=== PATIENT | male | born 1960 | race Caucasian/White ===

== ENCOUNTER → 2017-09-11 | Outpatient (CLI) | payer OTHER ==
[~2017-09-11] MED LIST: ACYC-114 PO; ALPR1TAB6 PO; GLUC-121 PO; LEVO150T5 PO; MULT-658 PO; OXYC1TAB7 PO
== END | disposition home or self-care (01) ==
LOC: PETCFH 08:32
PROVIDERS: ATTEND Urology
DX: C61 Malignant neoplasm of prostate (principal)
CPT/HCPCS: 78306; A9503

== ENCOUNTER 2018-05-10 17:27 | Emergency (ER) | payer OTHER ==
[~2018-05-10] VITALS: Ht 175.3 cm; Wt 95.2 kg
--- NOTE | 2018-05-10 18:28 | NUR ---
BLADDER SCAN DONE [id number] NOTED. SINGER PLACED WITH EASEMENT. IMMEDIATE OVER 500CC DARK BLOOD URINE NOTED AND STILL DRAINING PT STATES THE PRESSURE FEELS BETTER NOW UA SENT
[2018-05-10 18:51] LABS: MICROSCOPIC INDICATED
[2018-05-10 18:55] LABS: CULTURE INDICATED? YES
--- NOTE | 2018-05-10 18:55 | NUR ---
SBAR report received from RN, Yoana. Pt resting on jacob vail in place.
[2018-05-10 20:24] VITALS: BP 129/83
--- NOTE | 2018-05-10 20:28 | NUR ---
Dr. Ba at bedside to discuss ED findings, POC, and d/c instructions.
--- NOTE | 2018-05-10 20:35 | NUR ---
LEG BAG PLACED ON PT, EDUCATION PROVIDED. PT VERBALIZES AND DEMONSTRATES EDUCATION.
--- NOTE | 2018-05-10 20:46 | NUR ---
Patient/Caregiver given discharge instructions and they have confirmed that they understand the instructions. Patient ambulatory with steady gait.
== END 2018-05-10 20:48 | disposition home or self-care (01) ==
LOC: ED 18:07
DX: R33.9 Retention of urine, unspecified (principal)
CPT/HCPCS: 51702; 81001; 87086; 99284

== ENCOUNTER 2019-01-27 22:02 | Emergency (ER) | payer OTHER ==
[~2019-01-27] VITALS: Ht 172.7 cm; Wt 98.7 kg
[~2019-01-27 22:02] MED LIST changes: +CHOL20002 PO
[2019-01-28 00:25] LABS: MICROSCOPIC INDICATED
[2019-01-28 00:30] LABS: CULTURE INDICATED? NO
[2019-01-28 01:31] VITALS: BP 149/83
--- NOTE | 2019-01-28 01:38 | NUR ---
PT HAD VOIDED A TOTAL OF 1800 ML OF URINE VIA (12) SINGER, BLADDER WAS IRRAGATED WITH 400CC STERILE WATER.
--- NOTE | 2019-01-28 01:56 | NUR ---
SINGER CATH REMOVED , PT IN NAD
== END 2019-01-28 02:02 | disposition home or self-care (01) ==
LOC: ED 01-28 01:57
DX: R33.8 Other retention of urine (principal); R31.0 Gross hematuria; Z85.9 Personal history of malignant neoplasm, unspecified
CPT/HCPCS: 51700; 81001; 99284

== ENCOUNTER 2019-11-17 10:39 | Inpatient (IN) | payer OTHER ==
[~2019-11-17] VITALS: Ht 172.7 cm; Wt 95.8 kg
--- NOTE | 2019-11-17 10:47 | NUR ---
BOILER SHOP MECHANIC: CODE NEURO CALLED
--- NOTE | 2019-11-17 10:53 | NUR ---
[address] OSPINA 1047 NEUROLOGY PAGED 1052 BLUE RICK WITH NEUROLOGY RETURNED CALL TO DR OSPINA
[2019-11-17 11:00] LABS: BASOPHILS # (AUTO) 0.04 x10^3/uL (0-0.1); BASOPHILS % (AUTO) 1 % (0-1); EOSINOPHILS % (AUTO) 2 % (1-7); LYMPHOCYTES # (AUTO) 1.77 x10^3/uL (1-3.4); LYMPHOCYTES % (AUTO) 25 % (22-44); MD NO; MEAN CORPUSCULAR HEMOGLOBIN 30.3 pg (27.5-34.5); MEAN CORPUSCULAR HGB CONC 33.5 g/dL (33.2-36.2); MEAN CORPUSCULAR VOLUME 90.6 fL (81-97); MEAN PLATELET VOLUME 7.4 fL (7.4-10.4); MONOCYTES # (AUTO) 0.67 x10^3/uL (0.2-0.8); MONOCYTES % (AUTO) 10 % (2-9); NEUTROPHILS # (AUTO) 4.41 x10^3/uL (1.8-6.8); NEUTROPHILS % (AUTO) 63 % (42-75); PLATELET COUNT 206 x10^3/uL (130-400); RED BLOOD COUNT 4.56 x10^6/uL (4.38-5.82); RED CELL DISTRIBUTION WIDTH 17.1 % (9.4-14.8)
[2019-11-17] MEDS ORDERED: SODIUM CHLORIDE FLUSH 10ML SYR IVF ONE (11:00)
[2019-11-17 11:11] LABS: ALANINE AMINOTRANSFERASE 28 U/L (12-78); ALBUMIN 3.9 g/dL (3.4-5.0); ANION GAP 6 mmol/L (5-15); CALCIUM 9.5 mg/dL (8.5-10.1); CHLORIDE 110 mmol/L (98-107); PROTHROMBIN TIME 10.3 Seconds (9.6-11.5)
[2019-11-17 11:16] LABS: ALKALINE PHOSPHATASE 421 U/L (45-117); BILIRUBIN,TOTAL 1.4 mg/dL (0.2-1.0); CREATININE 0.93 mg/dL (0.7-1.3); TOTAL PROTEIN 7.7 g/dL (6.4-8.2); TROPONIN I < 0.015 ng/mL (0.000-0.045)
[2019-11-17] MEDS ORDERED: OMNIPAQUE 350 MG/ML, 100ML BOTTLE ONE (11:17)
--- NOTE | 2019-11-17 11:19 | NUR ---
PT BIB EMS FOR RIGHT SIDED WEAKNESS THAT HAS BEEN INTERMITTNET THE PAST 3 DAYS. STATES THAT YESTERDAY IT WAS MORE PROFOUND. ALSO STATED THAT WHEN SHE FIRST SAW HIM THIS MORNING AT ABOUT 0930 HE WAS APHASIC AND WAS HAVING TROUBLE GETTING THE RIGHT WORDS OUT, SHE SAID HE WAS DISORIENTATED AND HAVING TROUBLE PEFORMING SIMPLE TASKS. CODE NEURO CALLED. 2 IV STARTED. PT TAKEN TO CT. NIH STROKE SCALE COMPLETED. EKG COMPLETED. LABS DRAW. PT CONNECTED TO MONITORING EQUIPMENT. 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 PT ALSO PRESENTS WITH A LUMP ON THE LEFT SIDE OF HIS HEAD. DENIES LOC OR FALLING AND HITTING HIS HEAD
--- NOTE | 2019-11-17 11:49 | NUR ---
TELE NEURO DOC CALLED VIA TELE MACHINE.
[2019-11-17] MEDS ORDERED: MAGNESIUM SULFATE PMX 2GM/50ML 50 ML ONE (12:25)
[2019-11-17] MEDS ORDERED: ONDANSETRON 2MG/ML, 2ML IVPush PRN (12:30)
[2019-11-17] MEDS ORDERED: ENALAPRILAT 1.25 MG/ML, 2ML IVPush PRN (12:30)
[2019-11-17] MEDS ORDERED: ACYCLOVIR 400 MG TABLET PO PRN (12:30)
[2019-11-17] MEDS ORDERED: LABETALOL 5MG/ML, 20ML IVPush PRN (12:30)
[2019-11-17] MEDS ORDERED: POLYETHYLENE GLYCOL 17 GM PACKET PO PRN (12:30)
[2019-11-17] MEDS ORDERED: MAGNESIUM SULFATE PMX 2GM/50ML 50 ML IV ONE (12:30)
[2019-11-17] MEDS ORDERED: LACTULOSE 10 GM/15 ML UDC PO PRN (12:30)
[2019-11-17] MEDS ORDERED: DOCUSATE 100 MG CAPSULE PO PRN (12:30)
[2019-11-17] MEDS ORDERED: METOCLOPRAMIDE 5 MG/ML, 2ML IVPush PRN (12:30)
[2019-11-17] MEDS ORDERED: PROMETHAZINE 25 MG/ML, 1ML IM PRN (12:30)
[2019-11-17] MEDS ORDERED: ALPRazolam 1MG TAB PO PRN (12:30)
[2019-11-17] MEDS ORDERED: ACETAMINOPHEN 325 MG TABLET PO PRN (12:30)
[2019-11-17 12:34] LABS: MICROSCOPIC NOT IND
[2019-11-17] MEDS ORDERED: GADOTERATE 10 MMOL/20 ML SYR ONE (12:52)
--- NOTE | 2019-11-17 13:04 | NUR ---
PT IN MRI AT THIS TIME
[2019-11-17] MEDS ORDERED: ENOXAPARIN 40 MG/0.4 ML ONE (13:58)
[2019-11-17 14:08] VITALS: BP 134/83
[2019-11-17] MEDS: ENOXAPARIN 40 MG/0.4 ML SQ SCH (14:33)
[2019-11-17] MEDS: DEXAMETHASONE 4 MG/ML, 1ML IVPush SCH ×2 (15:18→20:40)
[2019-11-17] MEDS: LEVETIRACETAM 500 MG in SODIUM CHLORIDE 0.9% 100 ML IV SCH (15:19)
[2019-11-17] MEDS ORDERED: PRED5TAB PO (17:01)
[2019-11-17] MEDS ORDERED: OMEP10CA5 PO (17:01)
[2019-11-17] MEDS ORDERED: KETO10TA PO (17:01)
[2019-11-17] MEDS ORDERED: DOCU100T3 PO (17:01)
[2019-11-17] MEDS ORDERED: POLY17PO5 PO (17:01)
[2019-11-17] MEDS ORDERED: MEGE20TA3 PO (17:01)
[2019-11-17] MEDS ORDERED: ABIR250T PO (17:01)
[2019-11-17] MEDS ORDERED: ALPR0.5T7 PO (17:01)
[2019-11-17] MEDS ORDERED: PHARMACY INSTRUCTION MC PRN (17:30)
[2019-11-17 20:05] VITALS: BP 126/68
[2019-11-18 01:53] VITALS: BP 119/62
[2019-11-18] MEDS: LEVETIRACETAM 500 MG in SODIUM CHLORIDE 0.9% 100 ML IV SCH ×2 (02:34→15:42)
[2019-11-18] MEDS: DEXAMETHASONE 4 MG/ML, 1ML IVPush SCH ×3 (02:34→15:41)
[2019-11-18 04:41] LABS: BASOPHILS # (AUTO) 0.02 x10^3/uL (0-0.1); BASOPHILS % (AUTO) 0 % (0-1); EOSINOPHILS % (AUTO) 0 % (1-7); LYMPHOCYTES # (AUTO) 0.97 x10^3/uL (1-3.4); LYMPHOCYTES % (AUTO) 10 % (22-44); MD NO; MEAN CORPUSCULAR HEMOGLOBIN 29.8 pg (27.5-34.5); MEAN CORPUSCULAR HGB CONC 32.9 g/dL (33.2-36.2); MEAN CORPUSCULAR VOLUME 90.6 fL (81-97); MEAN PLATELET VOLUME 7.4 fL (7.4-10.4); MONOCYTES % (AUTO) 2 % (2-9); NEUTROPHILS # (AUTO) 8.92 x10^3/uL (1.8-6.8); NEUTROPHILS % (AUTO) 88 % (42-75); PLATELET COUNT 210 x10^3/uL (130-400); RED BLOOD COUNT 4.55 x10^6/uL (4.38-5.82); RED CELL DISTRIBUTION WIDTH 17.2 % (9.4-14.8)
[2019-11-18 04:46] LABS: ALANINE AMINOTRANSFERASE 30 U/L (12-78); ALBUMIN 3.7 g/dL (3.4-5.0); ANION GAP 9 mmol/L (5-15); CALCIUM 9.1 mg/dL (8.5-10.1); CHLORIDE 111 mmol/L (98-107); CHOLESTEROL, TOTAL 152 mg/dL (140-239); CREATININE 1.03 mg/dL (0.7-1.3)
[2019-11-18 04:55] LABS: ALKALINE PHOSPHATASE 417 U/L (45-117); BILIRUBIN,TOTAL 1.1 mg/dL (0.2-1.0); HDL CHOL % 25 % (26-37); HDL CHOLESTEROL (DIRECT) 38 mg/dL (40-60); LDL CHOLESTEROL,CALCULATED 89 mg/dL (54-169); LDL/HDL RATIO 2.3 (0.5-3.0); TOTAL PROTEIN 7.5 g/dL (6.4-8.2); TRIGLYCERIDES 125 mg/dL (50-200); VLDL CHOLESTEROL 25 mg/dL (0-25)
[2019-11-18] MEDS: LEVOTHYROXINE 150 MCG TABLET PO SCH (05:43)
[2019-11-18 08:13] VITALS: BP 121/79
[2019-11-18] MEDS ORDERED: MEGESTROL 40MG TABLET PO SCH (09:00)
[2019-11-18] MEDS: POLYETHYLENE GLYCOL 17 GM PACKET PO SCH (09:00)
[2019-11-18] MEDS ORDERED: VENLAFAXINE 50MG TABLET PO SCH (09:00)
[2019-11-18] MEDS: OMEPRAZOLE 10 MG CAPSULE.DR PO SCH ×2 (09:00→09:37)
[2019-11-18] MEDS: DOCUSATE 100 MG CAPSULE PO SCH (09:36)
[2019-11-18 13:28] VITALS: BP 129/86
[2019-11-18 13:32] VITALS: BP 131/55
[2019-11-18] MEDS: ENOXAPARIN 40 MG/0.4 ML SQ SCH (15:42)
[2019-11-18 20:16] VITALS: BP 147/78
[2019-11-19 01:18] VITALS: BP 127/80
[2019-11-19] MEDS: DEXAMETHASONE 4 MG/ML, 1ML IVPush SCH ×2 (05:13→12:59)
[2019-11-19] MEDS: LEVOTHYROXINE 150 MCG TABLET PO SCH (05:13)
[2019-11-19 06:03] LABS: CHLORIDE 109 mmol/L (98-107)
[2019-11-19 06:21] LABS: ANION GAP 8 mmol/L (5-15); CALCIUM 9.4 mg/dL (8.5-10.1); CREATININE 0.99 mg/dL (0.7-1.3); FREE T4 (FREE THYROXINE) 1.26 ng/dL (0.76-1.46)
[2019-11-19 08:07] VITALS: BP 127/54
[2019-11-19] MEDS: DOCUSATE 100 MG CAPSULE PO SCH (09:56)
[2019-11-19] MEDS: OMEPRAZOLE 10 MG CAPSULE.DR PO SCH (09:56)
[2019-11-19] MEDS: POLYETHYLENE GLYCOL 17 GM PACKET PO SCH (09:56)
[2019-11-19] MEDS: LEVETIRACETAM 500 MG TABLET PO SCH ×2 (09:56→21:01)
[2019-11-19 13:44] VITALS: BP 125/80
[2019-11-19] MEDS: ENOXAPARIN 40 MG/0.4 ML SQ SCH (14:57)
[2019-11-19 20:05] VITALS: BP 129/79
[2019-11-19] MEDS: VENLAFAXINE 50MG TABLET PO SCH (21:01)
[2019-11-19] MEDS: MEGESTROL 40MG TABLET PO SCH (21:02)
[2019-11-20 01:30] VITALS: BP 131/84
[2019-11-20] MEDS: LEVOTHYROXINE 150 MCG TABLET PO SCH (06:23)
[2019-11-20 07:16] VITALS: BP 124/79
[2019-11-20] MEDS: LEVETIRACETAM 500 MG TABLET PO SCH ×2 (08:19→21:10)
[2019-11-20] MEDS: POLYETHYLENE GLYCOL 17 GM PACKET PO SCH (08:19)
[2019-11-20] MEDS: DOCUSATE 100 MG CAPSULE PO SCH (08:20)
[2019-11-20] MEDS: DEXAMETHASONE 4 MG TABLET PO SCH ×3 (08:20→17:30)
[2019-11-20] MEDS: OMEPRAZOLE 10 MG CAPSULE.DR PO SCH (08:20)
[2019-11-20 13:01] VITALS: BP 126/81
[2019-11-20] MEDS: ENOXAPARIN 40 MG/0.4 ML SQ SCH (15:17)
[2019-11-20 20:09] VITALS: BP 120/84
[2019-11-20] MEDS: VENLAFAXINE 50MG TABLET PO SCH (21:10)
[2019-11-20] MEDS: MEGESTROL 40MG TABLET PO SCH (21:12)
[2019-11-21] MEDS: LEVOTHYROXINE 150 MCG TABLET PO SCH (05:43)
[2019-11-21 05:45] VITALS: BP 132/83
[2019-11-21 06:25] LABS: CHLORIDE 107 mmol/L (98-107)
[2019-11-21 06:33] LABS: ALANINE AMINOTRANSFERASE 30 U/L (12-78); ALBUMIN 3.5 g/dL (3.4-5.0); ALKALINE PHOSPHATASE 587 U/L (45-117); ANION GAP 7 mmol/L (5-15); BILIRUBIN,TOTAL 1.1 mg/dL (0.2-1.0); CALCIUM 8.7 mg/dL (8.5-10.1); CREATININE 0.95 mg/dL (0.7-1.3); TOTAL PROTEIN 7.2 g/dL (6.4-8.2)
[2019-11-21 06:43] LABS: MEAN CORPUSCULAR HEMOGLOBIN 30.2 pg (27.5-34.5); MEAN CORPUSCULAR HGB CONC 33.5 g/dL (33.2-36.2); MEAN CORPUSCULAR VOLUME 90.1 fL (81-97); MEAN PLATELET VOLUME 7.6 fL (7.4-10.4); PLATELET COUNT 220 x10^3/uL (130-400); RED CELL DISTRIBUTION WIDTH 16.9 % (9.4-14.8)
[2019-11-21 07:07] LABS: BASOPHILS # (AUTO) 0.05 x10^3/uL (0-0.1); BASOPHILS % (AUTO) 0 % (0-1); EOSINOPHILS % (AUTO) 0 % (1-7); LYMPHOCYTES # (AUTO) 1.74 x10^3/uL (1-3.4); LYMPHOCYTES % (AUTO) 11 % (22-44); MD SCAN; MONOCYTES # (AUTO) 1.16 x10^3/uL (0.2-0.8); MONOCYTES % (AUTO) 7 % (2-9); NEUTROPHILS # (AUTO) 12.79 x10^3/uL (1.8-6.8); NEUTROPHILS % (AUTO) 81 % (42-75)
[2019-11-21 07:19] VITALS: BP 142/84
[2019-11-21] MEDS: POLYETHYLENE GLYCOL 17 GM PACKET PO SCH (07:52)
[2019-11-21] MEDS: DOCUSATE 100 MG CAPSULE PO SCH (07:52)
[2019-11-21] MEDS: LEVETIRACETAM 500 MG TABLET PO SCH (07:52)
[2019-11-21] MEDS: OMEPRAZOLE 10 MG CAPSULE.DR PO SCH (07:53)
[2019-11-21] MEDS: DEXAMETHASONE 4 MG TABLET PO SCH ×2 (07:53→11:43)
[2019-11-21] MEDS ORDERED: LEVE500T53 PO (10:49)
[2019-11-21] MEDS ORDERED: DEXA4TAB66 PO (10:49)
== END 2019-11-21 12:35 | disposition home or self-care (01) | DRG 542 ==
LOC: SUATTDRO 12:09 → ED 13:30 → 4WST 13:40 → DCLOUNGE 11-21 12:20
PROVIDERS: ADMIT Internal Medicine; ATTEND Internal Medicine Infectious Disease
DX: C79.51 Secondary malignant neoplasm of bone (principal); G93.6 Cerebral edema; R47.01 Aphasia; R56.9 Unspecified convulsions; C61 Malignant neoplasm of prostate; E03.9 Hypothyroidism, unspecified; R29.810 Facial weakness; R94.31 Abnormal electrocardiogram [ECG] [EKG]; Z79.52 Long term (current) use of systemic steroids; Z85.46 Personal history of malignant neoplasm of prostate; Z90.79 Acquired absence of other genital organ(s); Z91.018 Allergy to other foods; Z79.899 Other long term (current) drug therapy
CPT/HCPCS: 36415; 70450; 70496; 70498; 70553; 71045; 76700; 80047; 80048; 80053; 80061; 81003; 83735; 84100; 84153; 84439; 84443; 84484; 85025; 85610; 85730; 93005; 93306; 95819; G0378; J1100; J1650; J1953; Q9967; A9575; J3475

== ENCOUNTER 2019-12-02 15:09 | Emergency (ER) | payer OTHER ==
[~2019-12-02] VITALS: Ht 175.3 cm; Wt 90.1 kg
[~2019-12-02 15:09] MED LIST changes: +ABIR250T PO; +ALPR0.5T7 PO; +DEXA4TAB66 PO; +DOCU100T3 PO; +KETO10TA PO; +LEVE500T53 PO; +MEGE20TA3 PO; +OMEP10CA5 PO; +POLY17PO5 PO; +PRED5TAB PO
[2019-12-02 15:13] VITALS: BP 112/76
--- NOTE | 2019-12-02 15:25 | NUR ---
TASK RN: PT WITH 150 ELIUD NEEDING TO BE REMOVED, POST BRAIN TUMOR EXCISION
--- NOTE | 2019-12-02 16:07 | NUR ---
UBALDO HERBERT IS AT THE BEDSID REMOVING ELIUD. PT IS TOLERATING WELL.
== END 2019-12-02 17:06 | disposition home or self-care (01) ==
LOC: ED 17:05
DX: S01.01XD Laceration without foreign body of scalp, subsequent encounter (principal); X58.XXXD Exposure to other specified factors, subsequent encounter
CPT/HCPCS: 99282

== ENCOUNTER 2020-01-11 17:45 | Inpatient (IN) | payer OTHER ==
[~2020-01-11] VITALS: Ht 172.7 cm; Wt 91.7 kg
--- NOTE | 2020-01-11 18:06 | NUR ---
TURN DOWN MAN: PT TO ROOM FROM TRIAGE AT THIS TIME VIA WHEELCHAIR WITH CAT AND DOG BATHER AND TIE HACKER
--- NOTE | 2020-01-11 18:15 | NUR ---
LATE ENTRY: PT CAME IN CO OF ABD PAIN AND REDNESS AROUND GROIN. PT HAS STAGE 4 PANCREATIC CANCER WITH METS. PT CURRENTLY RECEIVING CHEMO AND HAD A TUMOR REMOVED FROM HIS BRAIN IN [place] A COUPLE WEEKS AGO. PT RESTING IN [facility]. [facility]A SENT.
--- NOTE | 2020-01-11 18:24 | NUR ---
BREAK RN: PT TO IMAGING.
[2020-01-11] MEDS ORDERED: SODIUM CHLORIDE FLUSH 10ML SYR IVF ONE (18:30)
[2020-01-11 18:47] LABS: MEAN CORPUSCULAR HEMOGLOBIN 31.6 pg (27.5-34.5); MEAN CORPUSCULAR HGB CONC 32.8 g/dL (33.2-36.2); MEAN PLATELET VOLUME 7.5 fL (7.4-10.4); PLATELET COUNT 176 x10^3/uL (130-400); RED BLOOD COUNT 3.24 x10^6/uL (4.38-5.82); RED CELL DISTRIBUTION WIDTH 18.9 % (9.4-14.8)
[2020-01-11 18:51] LABS: ALANINE AMINOTRANSFERASE 25 U/L (12-78); ALBUMIN 3.7 g/dL (3.4-5.0); ANION GAP 9 mmol/L (5-15); CHLORIDE 109 mmol/L (98-107)
[2020-01-11 18:54] LABS: ALKALINE PHOSPHATASE 468 U/L (45-117); CREATININE 0.82 mg/dL (0.7-1.3)
[2020-01-11 19:02] LABS: MD YES
[2020-01-11 19:05] LABS: MICROSCOPIC INDICATED
--- NOTE | 2020-01-11 20:17 | NUR ---
BLADDER SCAN: 137ML
[2020-01-11 20:31] LABS: BAND#(MANUAL) 3.07 x10^3/uL; BANDS%(MANUAL) 13 % (0-7); BASOS#(MANUAL) 0.24 x10^3/uL (0-0.1); BASOS% (MANUAL) 1 % (0-1); EOS#(MANUAL) 0.24 x10^3/uL (0.0-0.4); EOS% (MANUAL) 1 % (1-7); LYMPH#(MANUAL) 2.12 x10^3/uL (1-3.4); LYMPHS% (MANUAL) 9 % (22-44); METAMYELOCYTES# (MANUAL) 0.47 x10^3/uL (0-0); METAMYELOCYTES% (MANUAL) 2 % (0-1); MONOS#(MANUAL) 1.89 x10^3/uL (0.3-2.7); MONOS% (MANUAL) 8 % (2-9); MYELOCYTES# (MANUAL) 0.47 x10^3/uL (0-0); MYELOCYTES% (MANUAL) 2 % (0-0); REACTIVE LYMPHS # (MANUAL) 0.24 x10^3/uL (0-0); REACTIVE LYMPHS % (MANUAL) 1 % (0-0); SEG#(MANUAL) 14.87 x10^3/uL (1.8-6.8); SEGS% (MANUAL) 63 % (42-75)
[2020-01-11 20:33] LABS: <PLATELET ESTIMATE> ADEQUATE; <PLT MORPHOLOGY> NORMAL PLT MORPH; OVALOCYTES 1+; POLYCHROMASIA 1+; TEAR DROPS 1+; TOXIC GRAN 1+
[2020-01-11] MEDS ORDERED: CEFTRIAXONE PMX 1GM/50ML 50 ML ONE (21:07)
[2020-01-11] MEDS ORDERED: CEFTRIAXONE PMX 1GM/50ML 50 ML IV ONE (21:30)
[2020-01-11] MEDS ORDERED: NYSTATIN TOPICAL POWDER 15GM TP PRN (21:30)
[2020-01-11] MEDS ORDERED: MAALOX/HYOSCYAMINE/LIDOCAINE 45 ML BTL ONE (21:36)
--- NOTE | 2020-01-11 21:49 | NUR ---
PT TO BE ADMITTED. PT EDCUATED ON PLAN OF CARE.
--- NOTE | 2020-01-11 21:52 | NUR ---
ORIGNAL PLAN WITH PT WAS TO DC HIM HOME WITH ABX. HOWEVER, MD FELT IT WAS NECESSARY TO KEEP PT. MD GAVE THE OPTION TO THE PT IF HE WANTED TO STAY OR GO. PT DECIDED ON STAYING. PT MEETS SEPSIS CRITERIA. BLOOD CULTURES NOT TO BE DRAWN PER MD.
[2020-01-11] MEDS ORDERED: MAALOX/HYOSCYAMINE/LIDOCAINE 45 ML BTL PO ONE (22:00)
--- NOTE | 2020-01-11 22:06 | NUR ---
Liang spoke with MD regarding sepsis criteria and at this time pt not to follow sepsis pathway nor be admitted for sepsis.
--- NOTE | 2020-01-11 22:20 | NUR ---
Report to Jose Cruz, informed ED MD did not want to purse sepsis route.
[2020-01-11] MEDS ORDERED: SODIUM CHLORIDE 0.9% 1,000ML IVBOLUS ONE (22:30)
[2020-01-11] MEDS ORDERED: ONDA4TAB7 PO (23:15)
[2020-01-11] MEDS ORDERED: LORA-446 PO (23:15)
[2020-01-11] MEDS ORDERED: VENL150C PO (23:15)
[2020-01-11] MEDS ORDERED: CALC-534 PO (23:15)
[2020-01-11] MEDS ORDERED: SENN-190 PO (23:15)
[2020-01-11] MEDS ORDERED: MEGE20TA3 PO (23:15)
[2020-01-11] MEDS ORDERED: PROC10TA78 PO (23:15)
[2020-01-12] MEDS ORDERED: DOCUSATE 100 MG CAPSULE PO PRN
[2020-01-12] MEDS ORDERED: LIDODERM 5% PATCH TD PRN
[2020-01-12] MEDS ORDERED: ONDANSETRON ODT 4 MG PO PRN
[2020-01-12] MEDS ORDERED: MELATONIN 5 MG TABLET PO PRN
[2020-01-12] MEDS: CEFTRIAXONE PMX 1GM/50ML 50 ML IV SCH (01:08)
[2020-01-12 01:23] VITALS: BP 109/66
[2020-01-12 05:05] LABS: MEAN CORPUSCULAR HEMOGLOBIN 32.2 pg (27.5-34.5); MEAN CORPUSCULAR HGB CONC 33.4 g/dL (33.2-36.2); MEAN PLATELET VOLUME 7.8 fL (7.4-10.4); PLATELET COUNT 161 x10^3/uL (130-400); RED BLOOD COUNT 3.05 x10^6/uL (4.38-5.82); RED CELL DISTRIBUTION WIDTH 19.1 % (9.4-14.8)
[2020-01-12 05:21] LABS: ANION GAP 8 mmol/L (5-15); CALCIUM 8.1 mg/dL (8.5-10.1); CHLORIDE 110 mmol/L (98-107)
[2020-01-12 05:22] LABS: CREATININE 0.77 mg/dL (0.7-1.3)
[2020-01-12 06:16] LABS: MD YES
[2020-01-12 06:17] LABS: BAND#(MANUAL) 0.84 x10^3/uL; BANDS%(MANUAL) 5 % (0-7); EOS% (MANUAL) 3 % (1-7); LYMPH#(MANUAL) 1.68 x10^3/uL (1-3.4); LYMPHS% (MANUAL) 10 % (22-44); MONOS% (MANUAL) 3 % (2-9); SEG#(MANUAL) 13.27 x10^3/uL (1.8-6.8); SEGS% (MANUAL) 79 % (42-75); TOXIC GRAN 1+
[2020-01-12 06:18] LABS: <PLATELET ESTIMATE> ADEQUATE; <PLT MORPHOLOGY> NORMAL PLT MORPH; ANISOCYTOSIS 1+; OVALOCYTES 1+; POLYCHROMASIA 1+; TEAR DROPS 1+
[2020-01-12 06:53] VITALS: BP 120/78
[2020-01-12] MEDS: LEVOTHYROXINE 150 MCG TABLET PO SCH (07:34)
[2020-01-12] MEDS: NYSTATIN TOPICAL POWDER 15GM TP SCH ×5 (07:35→21:00)
[2020-01-12] MEDS ORDERED: ACETAMINOPHEN 325 MG TABLET PO PRN ×2 (08:30)
[2020-01-12] MEDS ORDERED: SODIUM CHLORIDE 0.9% 1,000 ML IV SCH ×2 (08:30→22:30)
[2020-01-12] MEDS ORDERED: POTASSIUM CHLORIDE 20 MEQ TAB.ER.PRT PO ONE (08:30)
[2020-01-12 08:38] LABS: INTERNATIONAL NORMALIZED RATIO 1.04 (0.93-1.1); PROTHROMBIN TIME 10.7 Seconds (9.6-11.5)
[2020-01-12] MEDS ORDERED: POTASSIUM CHLORIDE 20 MEQ TAB.ER.PRT ONE (08:43)
[2020-01-12] MEDS: MEGESTROL 40MG TABLET PO SCH (08:47)
[2020-01-12] MEDS: VENLAFAXINE 75 MG CAP ER PO SCH (08:47)
[2020-01-12] MEDS: CALCIUM/VITAMIN D3 250-125 TABLET PO SCH (08:48)
[2020-01-12 13:29] VITALS: BP 144/87
[2020-01-12] MEDS: LACTATED RINGERS 1,000 ML IV SCH (19:00)
[2020-01-12 19:39] VITALS: BP 135/90
[2020-01-12] MEDS: OXYcodone/APAP 5/325MG TABLET PO PRN (20:18)
[2020-01-12] MEDS ORDERED: CEFTRIAXONE PMX 2GM/50ML 50 ML IV SCH (21:30)
[2020-01-13 00:32] VITALS: BP 142/80
[2020-01-13] MEDS: CEFTRIAXONE PMX 1GM/50ML 50 ML IV SCH (00:45)
[2020-01-13 05:25] LABS: ANION GAP 7 mmol/L (5-15); CALCIUM 7.8 mg/dL (8.5-10.1); CHLORIDE 113 mmol/L (98-107)
[2020-01-13 05:27] LABS: % IRON SATURATION 25 % (20-55); CREATININE 0.62 mg/dL (0.7-1.3); IRON LEVEL 63 mcg/dL (65-175); TOTAL IRON BINDING CAPACITY 257 mcg/dL (250-450)
[2020-01-13 05:36] LABS: MEAN CORPUSCULAR HEMOGLOBIN 31.9 pg (27.5-34.5); MEAN CORPUSCULAR HGB CONC 33.1 g/dL (33.2-36.2); MEAN PLATELET VOLUME 7.9 fL (7.4-10.4); PLATELET COUNT 153 x10^3/uL (130-400); RED BLOOD COUNT 2.95 x10^6/uL (4.38-5.82); RED CELL DISTRIBUTION WIDTH 19.3 % (9.4-14.8)
[2020-01-13] MEDS: NYSTATIN TOPICAL POWDER 15GM TP SCH ×3 (06:00→15:38)
[2020-01-13] MEDS: LACTATED RINGERS 1,000 ML IV SCH ×2 (06:00→15:38)
[2020-01-13] MEDS: LEVOTHYROXINE 150 MCG TABLET PO SCH (06:20)
[2020-01-13 06:47] LABS: MD YES
[2020-01-13 06:48] LABS: <PLATELET ESTIMATE> ADEQUATE; <PLT MORPHOLOGY> NORMAL PLT MORPH; BAND#(MANUAL) 0.19 x10^3/uL; BANDS%(MANUAL) 1 % (0-7); BASOS#(MANUAL) 0.19 x10^3/uL (0-0.1); BASOS% (MANUAL) 1 % (0-1); EOS#(MANUAL) 0.19 x10^3/uL (0.0-0.4); EOS% (MANUAL) 1 % (1-7); LYMPH#(MANUAL) 1.55 x10^3/uL (1-3.4); LYMPHS% (MANUAL) 8 % (22-44); METAMYELOCYTES# (MANUAL) 0.19 x10^3/uL (0-0); METAMYELOCYTES% (MANUAL) 1 % (0-1); MONOS#(MANUAL) 0.97 x10^3/uL (0.3-2.7); MONOS% (MANUAL) 5 % (2-9); MYELOCYTES# (MANUAL) 0.19 x10^3/uL (0-0); MYELOCYTES% (MANUAL) 1 % (0-0); SEG#(MANUAL) 15.91 x10^3/uL (1.8-6.8); SEGS% (MANUAL) 82 % (42-75)
[2020-01-13 06:49] LABS: ANISOCYTOSIS 1+; TEAR DROPS 1+
[2020-01-13 06:50] LABS: TOXIC GRAN 1+
[2020-01-13 08:14] VITALS: BP 107/64
[2020-01-13] MEDS: CALCIUM/VITAMIN D3 250-125 TABLET PO SCH ×2 (08:34→09:22)
[2020-01-13] MEDS: VENLAFAXINE 75 MG CAP ER PO SCH ×2 (08:34→09:22)
[2020-01-13] MEDS: MEGESTROL 40MG TABLET PO SCH ×2 (08:34→09:22)
[2020-01-13] MEDS: OXYcodone/APAP 5/325MG TABLET PO PRN ×2 (10:46→20:21)
[2020-01-13 12:17] VITALS: BP 116/76
[2020-01-13] MEDS: OPIUM/BELLADONNA SUPP.RECT 16.2-30 MG PR PRN ×2 (13:43→20:21)
[2020-01-13 19:27] VITALS: BP 123/79
[2020-01-14] MEDS: NYSTATIN TOPICAL POWDER 15GM TP SCH ×3 (00:03→11:25)
[2020-01-14] MEDS: CEFTRIAXONE PMX 1GM/50ML 50 ML IV SCH (00:03)
[2020-01-14 03:36] VITALS: BP 128/77
[2020-01-14] MEDS: LACTATED RINGERS 1,000 ML IV SCH (03:41)
[2020-01-14 06:20] LABS: MEAN CORPUSCULAR HEMOGLOBIN 32.2 pg (27.5-34.5); MEAN PLATELET VOLUME 7.8 fL (7.4-10.4); PLATELET COUNT 170 x10^3/uL (130-400); RED BLOOD COUNT 2.98 x10^6/uL (4.38-5.82); RED CELL DISTRIBUTION WIDTH 19.6 % (9.4-14.8)
[2020-01-14] MEDS: LEVOTHYROXINE 150 MCG TABLET PO SCH (06:20)
[2020-01-14 06:53] LABS: MD YES
[2020-01-14 06:54] LABS: BAND#(MANUAL) 0.18 x10^3/uL; BANDS%(MANUAL) 1 % (0-7); BASOS#(MANUAL) 0.18 x10^3/uL (0-0.1); BASOS% (MANUAL) 1 % (0-1); EOS#(MANUAL) 0.18 x10^3/uL (0.0-0.4); EOS% (MANUAL) 1 % (1-7); LYMPH#(MANUAL) 2.02 x10^3/uL (1-3.4); LYMPHS% (MANUAL) 11 % (22-44); METAMYELOCYTES# (MANUAL) 0.37 x10^3/uL (0-0); METAMYELOCYTES% (MANUAL) 2 % (0-1); MONOS#(MANUAL) 0.92 x10^3/uL (0.3-2.7); MONOS% (MANUAL) 5 % (2-9); MYELOCYTES# (MANUAL) 0.37 x10^3/uL (0-0); MYELOCYTES% (MANUAL) 2 % (0-0); SEG#(MANUAL) 14.17 x10^3/uL (1.8-6.8); SEGS% (MANUAL) 77 % (42-75)
[2020-01-14 06:55] LABS: <PLATELET ESTIMATE> DECREASED; <PLT MORPHOLOGY> NORMAL PLT MORPH; ANISOCYTOSIS 1+; OVALOCYTES 1+; POLYCHROMASIA 1+; TEAR DROPS 1+; TOXIC GRAN 1+
[2020-01-14 07:55] VITALS: BP 118/79
[2020-01-14] MEDS: OXYcodone/APAP 5/325MG TABLET PO PRN ×2 (08:52→13:18)
[2020-01-14] MEDS: VENLAFAXINE 75 MG CAP ER PO SCH (08:53)
[2020-01-14] MEDS: CALCIUM/VITAMIN D3 250-125 TABLET PO SCH (08:53)
[2020-01-14] MEDS: MEGESTROL 40MG TABLET PO SCH (08:54)
[2020-01-14] MEDS ORDERED: NYST15PO2 TP (12:38)
[2020-01-14] MEDS ORDERED: CEPH-368 PO (12:40)
[2020-01-14] MEDS ORDERED: OXYcodone/APAP 5/325MG PO (12:43)
[2020-01-14] MEDS ORDERED: OPIU1SUP2 PR (12:43)
== END 2020-01-14 16:10 | disposition home or self-care (01) | DRG 690 ==
LOC: ED 21:27 → EDIP 21:44 → 4NE 22:59 → 4NW 01-13 17:03 → DCLOUNGE 01-14 16:01
PROVIDERS: ADMIT Family Medicine; ATTEND Internal Medicine
DX: N30.01 Acute cystitis with hematuria (principal); D62 Acute posthemorrhagic anemia; D72.829 Elevated white blood cell count, unspecified; C61 Malignant neoplasm of prostate; L30.9 Dermatitis, unspecified; E03.9 Hypothyroidism, unspecified; E87.6 Hypokalemia; E66.9 Obesity, unspecified; B37.2 Candidiasis of skin and nail; R00.0 Tachycardia, unspecified; F41.9 Anxiety disorder, unspecified; Z72.89 Other problems related to lifestyle; Z68.30 Body mass index [BMI] 30.0-30.9, adult
CPT/HCPCS: 36415; 74176; 80048; 80053; 81001; 83540; 83550; 83735; 85025; 85610; 87077; 87086; 87186; G0378; J0696; J7030; J7120; J7512